=== PATIENT | female | born 1995 | race Caucasian/White ===

== ENCOUNTER → 2019-08-11 | Outpatient (CLI) | payer OTHER ==
--- NOTE | 2019-08-11 15:41 | US ---
EXAMINATION TYPE: US OB >= 14 wk fetus DATE OF EXAM: 08/11/2019 COMPARISON: None CLINICAL HISTORY: Z34.90 , unspecified gestational age TECHNIQUE: Transabdominal (TA) GESTATIONAL AGE / DATING Physician Established: Not yet established Dates by LMP: (23 weeks/4 days) EDC: 12/04/19 Dates by First Scan: No previous this is first scan Dates by Current Scan: ( 21 weeks/4 days) EDC: 12/18/19 Beta HCG (if available): Not available at this time SURVEY IUP: Single PLACENTA: Anterior PREVIA: No Previa TYLER: 12.4 cm CERVICAL LENGTH (transabdominal: norm > 3.0cm): 5.0 cm BIOMETRY PRESENTATION: Vertex BPD: 5.4 cm 22 weeks / 3 days HC: 19.6 cm 21 weeks / 5 days AC: 17.4 cm 22 weeks / 2 days FL: 3.5 cm 21 weeks / 1 days ESTIMATED WEIGHT IN GRAMS: 451 grams ESTIMATED WEIGHT IN LBS/OZ: 1 lbs. 0 oz. HC/AC: 1.1 FL/AC: 20.3 HEART RATE: 158 bpm RHYTHM: Normal MATERNAL WALL MEASUREMENT: 6.0 cm from skin to anterior uterine wall (if exam limited due to body hab itus). No cervical thinning. Normal cephalad presentation. No placenta previa. Amniotic fluid index calculat ed within normal limits. biometry measurements are concordant and within normal limits. Detaile d anatomical survey not performed. IMPRESSION: As above.
== END | disposition home or self-care (01) ==
LOC: RADUSMAIN 14:35
PROVIDERS: ATTEND Family Medicine
DX: Z34.90 Encounter for supervision of normal pregnancy, unspecified, unspecified trimester (principal)
CPT/HCPCS: 76805

== ENCOUNTER 2020-10-13 20:57 | Emergency (ER) | payer BC, OTHER ==
[2020-10-13 21:03] VITALS: BP 173/90; PULSE 103; RESP 19; TEMP 97.5
[2020-10-13] MEDS ORDERED: predniSONE 50 MG TAB PO STA (21:17)
--- NOTE | 2020-10-13 21:22 | ED ---
Allergic Reaction HPI - General Chief complaint: Allergic Reaction Stated complaint: allergic reaction to bee sting Time Seen by Provider: 10/13/20 21:07 Source: patient Mode of arrival: ambulatory - History of Present Illness Initial Comments: 25-year-old female presents emergency Department with a chief complaint of a bee sting. Patient reports this occurred yesterday. States she went to the urgent care was given Benadryl and epinephrine. Patient reports she was discharged and the symptoms improved but now they have worsened throughout the day. Patient reports she feels slightly short of breath and dizzy after taking the Benadryl at home. She states the bee sting is more tender to touch with some swelling. Denies any difficulty talking or swallowing. No drooling. - Related Data Previous Rx's Medication Instructions Recorded predniSONE 50 mg PO DAILY #5 tab 10/13/20 Allergies Allergy/AdvReac Type Severity Reaction Status Date / Time cephalexin [From Keflex] AdvReac Rash/Hives Verified 10/13/20 21:04 Review of Systems ROS Statement: Those systems with pertinent positive or pertinent negative responses have been documented in the HPI. ROS Other: All systems not noted in ROS Statement are negative. Past Medical History Additional Past Medical History / Comment(s): firbomyalgia History of Any Multi-Drug Resistant Organisms: None Reported Past Surgical History: Section Past Psychological History: No Psychological Hx Reported Smoking Status: Never smoker Past Alcohol Use History: None Reported Past Drug Use History: None Reported General Exam Limitations: no limitations General appearance: alert, in no apparent distress, obese Head exam: Present: atraumatic, normocephalic, normal inspection Eye exam: Present: normal appearance, PERRL, EOMI Pupils: Present: normal accommodation ENT exam: Present: normal exam, normal oropharynx, mucous membranes moist Neck exam: Present: normal inspection, full ROM. Absent: tenderness Respiratory exam: Present: normal lung sounds bilaterally. Absent: respiratory distress, wheezes, rales, rhonchi, stridor Cardiovascular Exam: Present: regular rate, normal rhythm, normal heart sounds. Absent: systolic murmur GI/Abdominal exam: Present: soft. Absent: distended, tenderness Extremities exam: Present: full ROM, normal capillary refill. Absent: normal inspection (Bite sting on the hand), tenderness Back exam: Present: normal inspection, full ROM Neurological exam: Present: alert, oriented X3 Psychiatric exam: Present: normal affect, normal mood Skin exam: Present: warm, dry, intact, normal color Course Vital Signs 10/13/20 21:00 Temperature 97.5 F L Pulse Rate 103 H Respiratory 19 Rate Blood Pressure 173/90 O2 Sat by Pulse 98 Oximetry Medical Decision Making - Medical Decision Making 25-year-old female presents to the emergency room with a chief complaint of a bee sting. On physical examination, it appears to be bee sting between the second and third digit of the left hand. No signs of cellulitis at this time. Localized ALLERGIC reaction. Patient was advised to continue taking the Benadryl. Patient does not appear to be any respiratory distress. She is talking without any difficulties. I will give her a short course of prednisone. Strict return parameters were thoroughly discussed with patient's attending agreeable. Case discussed with physician. Disposition Clinical Impression: Allergic reaction to insect sting Disposition: HOME SELF-CARE Condition: Stable Instructions (If sedation given, give patient instructions): Insect Bite or Sting (ED) Additional Instructions: Please return to the Emergency Department if symptoms worsen or any other concerns. Prescriptions: predniSONE 50 mg PO DAILY #5 tab Is patient prescribed a controlled substance at d/c from ED?: No Referrals: David Parekh MD [Primary Care Provider] - 1-2 days Time of Disposition: 21:21
== END 2020-10-13 21:37 | disposition home or self-care (01) ==
LOC: EC 20:57
DX: T63.441A Toxic effect of venom of bees, accidental (unintentional), initial encounter (principal); R06.02 Shortness of breath; R42 Dizziness and giddiness; Z88.6 Allergy status to analgesic agent
CPT/HCPCS: 99282; J7512

== ENCOUNTER 2021-05-19 22:44 | Emergency (ER) | payer OTHER ==
--- NOTE | 2021-05-19 23:08 | XR ---
EXAMINATION TYPE: XR foot complete RT DATE OF EXAM: 05/19/2021 COMPARISON: NONE HISTORY: Pain TECHNIQUE: 3 views FINDINGS: Metatarsals are intact. I see no fracture nor dislocation. There are no erosions. IMPRESSION: Negative right foot exam. No fracture.
[2021-05-19] MEDS ORDERED: Acetaminophen-Codeine 300-30mg TAB PO STA (23:27)
[2021-05-19] MEDS ORDERED: ACET/COD 300 MG/30 MG STARTER PACK 6 TAB BTL PO STA (23:27)
[2021-05-19] MEDS ORDERED: IBUPROFEN 800 MG TAB PO STA (23:27)
[2021-05-19] MEDS ORDERED: IBUPROFEN 600 MG STARTER PACK 4 TAB BTL PO STA (23:27)
--- NOTE | 2021-05-19 23:31 | ED ---
Lower Extremity Injury HPI - General Chief Complaint: Extremity Injury, Lower Stated Complaint: RT foot injury Time Seen by Provider: 05/19/21 22:55 Source: patient, RN notes reviewed, old records reviewed Mode of arrival: wheelchair Limitations: no limitations - History of Present Illness Initial Comments: This is a 25-year-old female to the emergency department for evaluation. Patient presents today for evaluation regards to right foot pain. Patient had piece of heart fall off a table onto her right foot with severe right foot. Tenderness pain tenderness or toes. No other injury. Foot is difficult to walk on secondary to pain but she is able to ambulate. No other trauma noted. No bleeding MD Complaint: foot injury -: hour(s) Injury: Toes: Right Type of Injury: blunt Place: home Severity: moderate Severity scale (1-10): 6 Improves With: nothing Worsens With: weight bearing Context: direct blow Associated Symptoms: swelling, able to partially bear weight Treatments Prior to Arrival: cold therapy, bandage - Related Data Previous Rx's Medication Instructions Recorded predniSONE 50 mg PO DAILY #5 tab 10/13/20 Allergies Allergy/AdvReac Type Severity Reaction Status Date / Time cephalexin [From Keflex] AdvReac Rash/Hives Verified 05/19/21 22:54 Review of Systems ROS Statement: Those systems with pertinent positive or pertinent negative responses have been documented in the HPI. ROS Other: All systems not noted in ROS Statement are negative. Past Medical History Past Medical History: Fibromyalgia Additional Past Medical History / Comment(s): firbomyalgia History of Any Multi-Drug Resistant Organisms: None Reported Past Surgical History: Section Past Psychological History: No Psychological Hx Reported Smoking Status: Never smoker Past Alcohol Use History: None Reported Past Drug Use History: None Reported General Exam - General Exam Comments Initial Comments: Tenderness to all L lateral toes and distal aspect of foot Limitations: no limitations General appearance: alert, in no apparent distress Head exam: Present: atraumatic, normocephalic, normal inspection Eye exam: Present: normal appearance, PERRL, EOMI. Absent: scleral icterus, conjunctival injection, periorbital swelling ENT exam: Present: normal exam, mucous membranes moist Neck exam: Present: normal inspection. Absent: tenderness, meningismus, lymphadenopathy Respiratory exam: Present: normal lung sounds bilaterally. Absent: respiratory distress, wheezes, rales, rhonchi, stridor Cardiovascular Exam: Present: regular rate, normal rhythm, normal heart sounds. Absent: systolic murmur, diastolic murmur, rubs, gallop, clicks GI/Abdominal exam: Present: soft, normal bowel sounds. Absent: distended, tenderness, guarding, rebound, rigid Extremities exam: Present: normal inspection, full ROM, tenderness (Dorsal aspect of foot), normal capillary refill. Absent: pedal edema, joint swelling, calf tenderness Back exam: Present: normal inspection Neurological exam: Present: alert, oriented X3, CN II-XII intact Psychiatric exam: Present: normal affect, normal mood Skin exam: Present: warm, dry, intact, normal color. Absent: rash Course Vital Signs 05/19/21 22:51 Temperature 97.9 F Pulse Rate 99 Respiratory 20 Rate Blood Pressure 156/94 O2 Sat by Pulse 99 Oximetry - Reevaluation(s) Reevaluation #1: 05/20/21 00:17 Medical records reviewed Reevaluation #2: 05/20/21 00:17 Patient's pain is well-controlled Reevaluation #3: 05/20/21 00:17 Patient informed results okay for discharge Medical Decision Making - Medical Decision Making 25 female to the emergency department for evaluation patient presents today for evaluation regarding toe. Foot and toe pain. At this time patient's pain is well-controlled feeling improved and she can be discharged home - Radiology Data Radiology results: report reviewed (X-ray right foot is negative for traumatic injury), image reviewed Disposition Clinical Impression: Contusion of right foot Disposition: HOME SELF-CARE Condition: Good Instructions (If sedation given, give patient instructions): Foot Contusion (ED) Is patient prescribed a controlled substance at d/c from ED?: No Referrals: David Parekh MD [Primary Care Provider] - 1-2 days
[2021-05-20 00:15] VITALS: BP 148/89; PULSE 90; RESP 18; TEMP 98.2
== END 2021-05-20 00:14 | disposition home or self-care (01) ==
LOC: EC 22:44
DX: S90.31XA Contusion of right foot, initial encounter (principal); Z88.1 Allergy status to other antibiotic agents; W19.XXXA Unspecified fall, initial encounter
CPT/HCPCS: 99283